=== PATIENT | female | born 2000 | race Caucasian/White ===

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

== ENCOUNTER 2022-01-21 09:24 | Day surgery (SDC) | payer OTHER ==
[2022-01-19 11:26] VITALS: BMI 26.4
[~2022-01-21 09:24] MED LIST: ACETAMINOPHEN TAB 500 MG TAB PO PRN; DEXAMETHASONE SOD PHOSPHATE 4 MG/ML 1 ML VIAL IV ONE; HEPARIN SODIUM,PORCINE/PF 5,000 UNIT/0.5 ML SYRINGE SQ PRN; HYDROmorphone 0.5 MG/0.5 ML SYRINGE IVP PRN; LACTATED RINGERS 1,000 ML IV SCH; MIDAZOLAM 2 MG/2 ML VIAL IV PRN; ONDANSETRON 4 MG/2 ML VIAL IVP ONE; SCOPOLAMINE 1 MG/72 HR PATCH TRANSDERM ONE; metroNIDAZOLE-NS PMX 500 MG in SALINE 1 100ML.BAG IVPB PRN
--- NOTE | 2022-01-21 10:38 | P.GSHP ---
History of Present Illness H&P Date: 01/21/22 Chief Complaint: Pilonidal cyst Is a 21-year-old female who presents today for pilonidal cyst excision. Patient's had issues with a chronic inflamed pilonidal cyst. Past Medical History Past Medical History: No Reported History Additional Past Medical History / Comment(s): hx anemia History of Any Multi-Drug Resistant Organisms: None Reported Past Surgical History: No Surgical Hx Reported Additional Past Surgical History / Comment(s): wisdom teeth Past Anesthesia/Blood Transfusion Reactions: No Reported Reaction Smoking Status: Vaper - Past Family History Mother Family Medical History: No Reported History Medications and Allergies Home Medications Medication Instructions Recorded Confirmed Type Ketorolac [Toradol] 10 mg PO Q6HR PRN #12 tab 01/06/22 01/19/22 Rx Sulfamethox-Tmp 800-160Mg [Bactrim 1 tab PO Q12HR 10 Days #20 tab 01/06/22 01/21/22 Rx DS 800-160 mg] Allergies Allergy/AdvReac Type Severity Reaction Status Date / Time No Known Allergies Allergy Verified 01/21/22 09:47 Surgical - Exam Vital Signs Temp Pulse Resp BP Pulse Ox 96.5 F L 82 16 121/73 97 01/21/22 09:56 01/21/22 09:56 01/21/22 09:56 01/21/22 09:56 01/21/22 09:56 - General well developed, well nourished, no distress - Eyes PERRL - ENT normal pinna - Neck no masses - Respiratory normal expansion - Cardiovascular Rhythm: regular - Abdomen Abdomen: soft, non tender Assessment and Plan Assessment: Pilonidal cyst. We'll perform excision.
[2022-01-21] MEDS ORDERED: LIDOCAINE 2% INJ 20 MG/ML (2 ML VIAL) ONE (10:46)
[2022-01-21] MEDS ORDERED: PROPOFOL 10 MG/ML 20 ML VIAL IV ONE (10:46)
[2022-01-21] MEDS ORDERED: MIDAZOLAM 2 MG/2 ML VIAL ONE (10:46)
[2022-01-21] MEDS ORDERED: ACETAMINOPHEN IV (For NPO) 1,000 MG/100 ML VIAL ONE (10:46)
[2022-01-21] MEDS ORDERED: fentaNYL (PF) 50 MCG/ML 2 ML AMP ONE (10:46)
[2022-01-21] MEDS ORDERED: SUCCINYLCHOLINE CHLORIDE 200 MG/10 ML VIAL IV ONE (10:46)
[2022-01-21] MEDS ORDERED: KETOROLAC 15 MG/ML 1 ML VIAL ONE (10:46)
[2022-01-21] MEDS ORDERED: LIDOCAINE 2%-EPI 1:200,000 20 ML VIAL SQ ONE ×2 (10:47→11:28)
--- NOTE | 2022-01-21 11:37 | P.OP ---
Date of Procedure: 01/21/22 Preoperative Diagnosis: Pilonidal cyst Postoperative Diagnosis: Pilonidal cyst cyst Procedure(s) Performed: Excision of pilonidal cyst Anesthesia: AYLEEN Surgeon: Shane Alexander Estimated Blood Loss (ml): 5 Pathology: other (Pilonidal cyst) Condition: stable Disposition: PACU Description of Procedure: Patient's placed on the operative table in the supine position. She received general endotracheal tube anesthesia. She was then placed in the prone position. The area of pilonidal cyst was prepped and draped usual sterile fashion. Elliptical skin incision was made around abdominal cyst. And then using left cautery and Harmonic scissors the Patanol cyst was dissected down level of the coccyx. The specimen was then removed and sent to pathology. The bleeding points were coagulated. The wound was irrigated there is no bleeding seen. The wound was then packed with wet-to-dry Kerlix. The area was anesthetized 1% local Xylocaine. Patient top she will was sent to recovery room in stable condition.
[2022-01-21] MEDS ORDERED: MEPERIDINE 50 MG/ML SYRINGE IVP ONE (11:49)
[2022-01-21 12:05] VITALS: TEMP 97.3
[2022-01-21] MEDS ORDERED: MIDAZOLAM 2 MG/2 ML VIAL IVP ONE (12:12)
[2022-01-21 12:19] VITALS: RESP 16
[2022-01-21 12:47] VITALS: BP 92/52
[2022-01-21 13:22] VITALS: PULSE 93
== END 2022-01-21 13:45 | disposition home or self-care (01) ==
LOC: OR 09:24
PROVIDERS: ATTEND Surgery
DX: L05.01 Pilonidal cyst with abscess (principal); F17.200 Nicotine dependence, unspecified, uncomplicated; F12.90 Cannabis use, unspecified, uncomplicated; Z79.899 Other long term (current) drug therapy; Z79.1 Long term (current) use of non-steroidal anti-inflammatories (NSAID)
CPT/HCPCS: 81025; 11770; J2250; J0330; J1100; J2175; J0690; J2405; J3010; J0131; J1885; J2704; J1644; J2001; 88304